=== PATIENT | male | born 1975 | race Caucasian/White ===

== ENCOUNTER 2021-06-11 01:29 | Emergency (ER) | payer MEDICAID ==
[~2021-06-11] VITALS: Ht 193 cm; Wt 86.4 kg
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
--- NOTE | 2021-06-11 03:09 | NUR ---
XRAY AT BEDSIDE
[2021-06-11] MEDS ORDERED: HYDR-3965 PO (04:26)
[2021-06-11 04:58] VITALS: BP 131/95
== END 2021-06-11 05:00 | disposition home or self-care (01) ==
LOC: ER 01:30
DX: S52.292A Other fracture of shaft of left ulna, initial encounter for closed fracture (principal); M25.552 Pain in left hip; M79.602 Pain in left arm; Z88.0 Allergy status to penicillin; X58.XXXA Exposure to other specified factors, initial encounter; Y93.89 Activity, other specified; Y92.89 Other specified places as the place of occurrence of the external cause; Y99.8 Other external cause status
CPT/HCPCS: 29125; 73090; 73501; 99284